=== PATIENT | female | born 1960 | race Caucasian/White ===

== ENCOUNTER → 2016-11-21 | Outpatient (CLI) | payer OTHER ==
--- NOTE | 2016-11-21 13:18 | EST ---
DATE OF SERVICE: 11/21/2016 TYPE OF REPORT: Stress test, Danial. INDICATION: BASELINE HEART RATE: 83 BASELINE BLOOD PRESSURE: 203/95 MAXIMUM HEART RATE: 159 MAXIMUM BLOOD PRESSURE: 214/82 85% MPHR: 141 100% MPHR: 166 METS: 9.7 MAX STAGE REACHED: III TOTAL EXERCISE TIME: 8 minutes The test is being done to evaluate symptoms of palpitations and chest pain and also shortness of breath. The patient has history of smoking and family history and also diabetes mellitus. Baseline EKG showed a sinus rhythm with normal FL interval and QRS duration. Blood pressure at rest is 203/95 initially, but subsequently came down to 156/ 93 with a pulse rate of 83. Patient walked on the Danial protocol for 8 minutes achieving a maximum heart rate of 159 with a blood pressure of 214/82. EKGs taken during and after the exercise did not reveal any significant changes to suggest ischemia. Patient did not experience any chest pain. FINAL IMPRESSION: 1. Fair exercise capacity. 2. Negative stress test. 3. Patient did not experience any chest pain. MALA
== END ==
LOC: RADNMMAIN 10:44
PROVIDERS: ATTEND Family Medicine
DX: R00.0 Tachycardia, unspecified (principal); R07.9 Chest pain, unspecified
CPT/HCPCS: 93017; 93225; 93226